=== PATIENT | male | born 1985 | race Caucasian/White ===

== ENCOUNTER 2021-12-13 08:50 | Emergency (ER) | payer OTHER ==
[~2021-12-13] VITALS: Ht 180.3 cm; Wt 95.5 kg
[2021-12-13 09:33] VITALS: BP 163/100; TEMP 98.2
[2021-12-13 10:47] VITALS: PULSE 82
== END 2021-12-13 10:47 | disposition home or self-care (01) ==
LOC: COL.ER 08:50
DX: T63.461A Toxic effect of venom of wasps, accidental (unintentional), initial encounter (principal); F17.210 Nicotine dependence, cigarettes, uncomplicated